=== PATIENT | male | born 1980 | race Caucasian/White ===

== ENCOUNTER → 2019-12-17 | Outpatient (CLI) | payer OTHER ==
--- NOTE | 2019-12-17 09:35 | RAD ---
MRI Cervical Spine Without Contrast History:Left arm radiculopathy Technique: Multiplanar, multi sequential noncontrast MR imaging was performed of the cervical spine. Comparison: None Findings: Cervical vertebral body stature and AP alignment are maintained. Intervertebral disc spaces are overall maintained, minimal disc desiccation greatest C5-6. There is no significant marrow edema. Cervical cord caliber is within normal limits without defined or expansile signal change. C2-C3: Spinal canal and neural foramina are adequate. C3-C4: Spinal canal and the neural foramina are adequate. C4-C5: Neural foramina and spinal canal are adequate. There is facet degenerative change bilaterally. C5-C6: There is mild facet degenerative change. Neural foramina and spinal canal are adequate. C6-C7: There is protrusion/small extrusion extending very slightly above the intervertebral disc space greatest centrally and in the far left lateral recess about 2 mm AP, indentation upon the ventral thecal sac greatest in the far left lateral recess. There is mild narrowing of the far lateral recess, also central canal minimally narrowed about 9 mm. Right neural foramen is adequate. There is probable [id number] narrowing of the proximal left neural foramen by protrusion/small extrusion. C7-T1: Neural foramina and spinal canal are adequate. Impression: 1. There is mild spinal stenosis and also mild narrowing of the far left lateral recess at C6-7 by protrusion/small extrusion extending slightly above the intervertebral disc space in the far lateral recess. There is also probable [id number] narrowing of the proximal left C6-7 neural foramen. Electronically signed by: Boston Tian MD (12/17/2019 9:32 AM) [id number]
== END | disposition home or self-care (01) ==
LOC: MRI 08:42
PROVIDERS: ATTEND Physician Assistant
DX: M47.22 Other spondylosis with radiculopathy, cervical region (principal); M48.02 Spinal stenosis, cervical region
CPT/HCPCS: 72141

== ENCOUNTER → 2020-01-02 | Outpatient (CLI) | payer OTHER ==
[~2020-01-02] MED LIST: HYDR-2761 PO; LISI2.5T PO; METF10007 PO
== END | disposition home or self-care (01) ==
LOC: LAB 12:52
PROVIDERS: ATTEND Surgery
DX: Z01.818 Encounter for other preprocedural examination (principal); Z11.59 Encounter for screening for other viral diseases
CPT/HCPCS: C9803; U0003; 36415

== ENCOUNTER → 2020-01-05 | Outpatient (CLI) | payer OTHER ==
--- NOTE | 2020-01-05 15:18 | KCIC ---
MR of the left shoulder HISTORY: Left shoulder pain. TECHNIQUE: Routine multiplanar sequences are obtained. FINDINGS: The acromioclavicular joint is mildly degenerative. Mild undersurface osteophytes with mass effect upon the supraspinatus. Mild thickening and signal within the rotator cuff compatible with tendinosis. No measurable fluid gap or rupture of the rotator cuff. Muscle bulk intact. No significant subdeltoid bursal effusion. No significant glenohumeral joint effusion. Tear of the superior, posterior and inferior labrum. Tiny posteroinferior para labral cysts. Small subchondral cysts at the posterior glenoid, likely degenerative. There may be mild overlying chondromalacia. The biceps tendon is intact. No acute fracture. No aggressive bone destruction. No acute soft tissue abnormality. IMPRESSION: 1. Tear of the superior, posterior and inferior labrum. 2. Rotator cuff tendinosis without measurable fluid defect or rupture. 3. Small subchondral cysts at the posteroinferior glenoid, likely due to degenerative disease. Electronically signed by: Jimmy Loza MD (01/05/2020 3:15 PM) [id number]
== END | disposition home or self-care (01) ==
LOC: KCIC MRI 14:15
PROVIDERS: ATTEND Physician Assistant
DX: M94.212 Chondromalacia, left shoulder (principal); M25.712 Osteophyte, left shoulder; M75.102 Unspecified rotator cuff tear or rupture of left shoulder, not specified as traumatic; M77.8 Other enthesopathies, not elsewhere classified
CPT/HCPCS: 73221

== ENCOUNTER → 2020-01-08 | Day surgery (SDC) | payer OTHER ==
[~2020-01-08] MED LIST changes: -HYDR-2761 PO; +LIDOCAINE 1%/EPI 1:100,000 20 ML VIAL. INJ ONE; +LIDOCAINE 1%/EPI 1:100,000 20 ML VIAL. ONE; -LISI2.5T PO; -METF10007 PO
--- NOTE | 2020-01-08 09:43 | PDOC4 ---
Operative Note Operative Note Date: 01/08/2020 at 9:41 AM Preoperative diagnosis: Right lower back mass Postoperative diagnosis: Same Procedure: Excision of right lower back mass Surgeon: Harris Specimen: Right lower back mass 4 cm x 4 cm Dictation: Patient is a 39-year-old male who several years ago had a small lipoma removed from his right lower back most recently that area has been getting larger occasionally tender. Procedure of excision of mass was explained to the patient detail was benefits were also discussed occluding bleeding infection alternatives to this procedure also discussed with the patient who seemed to understand and gave both verbal and written consent to have the procedure performed. Patient was taken to the minors room placed in the prone positioning his lower back on the right side was prepped and draped usual sterile fashion using ChloraPrep. An area over the mass was injected with 1% lidocaine with epinephrine incision was made with a 15 blade scalpel is carried down through the subcutaneous tissue. The mass was sharply excised with Metzenbaum scissors and sent for pathology the mass measured 4 x 4 cm appear to be lipoma wound was then closed in 2 layers the deep layer running 3-0 Vicryl and the skin was reapproximated for subcuticular Monocryl Mastisol Steri-Strips and island dressing were applied. Patient tolerated procedure well was discharged home in stable condition all sponge instrument needle counts listed as correct estimated blood loss 10 mL RICH TEE MD Jan 08, 2020 09:43
--- NOTE | 2020-01-08 09:45 | DISCH ---
DISCHARGE INSTRUCTIONS Condition on Discharge Condition on Discharge: Stable Activity After Discharge Activity Instructions for Disc: No restrictions Other activity instructions: May shower in 24 hours Diet after Discharge Diet after Discharge: Regular Wound Incision Care Other wound/incision instructi: May shower in 24 hours Contacting the after DC Call your doctor for: If your condition worsens Follow-Up Follow up with: Dr. Tee in 2 weeks RICH TEE MD Jan 08, 2020 09:45
--- NOTE | 2020-01-09 18:06 | PATHOLOGY ---
[facility] Accession Number: [id number] . 01 Material submitted: . back - LOWER RIGHT BACK MASS. Modifiers: lower, right . 02 Diagnosis: Fibroadipose tissue, lower right back mass: - Lipoma. (JPM/db; 01/09/2020) LBQ 01/09/2020 1533 Local . 02 Electronically signed: . Epifanio Hernandez MD, Pathologist NPI- [id number] . 01 Gross description: . The specimen is received in formalin, labeled "Blacketer, Nino, lower right back mass" and consists of an irregular segment of yellow-red soft tissue measuring 6.8 x 3.9 x 2.0 cm. Sectioning reveals focally fibrotic cut surfaces and no gross lesions. Cafeteria Cashier tissue is submitted in A1-A2. (SDY; 01/08/2020) SYU/SYU 01/09/2020 1532 Local . 02 Pathologist provided ICD-10: D17.1 . 02 CPT . 775454 Specimen Comment: A courtesy copy of this report has been sent to [phone], [phone] Specimen Comment: [id number] Specimen Comment: Report sent to / DR CRAIN Performed at: 01 [facility] [address], [place], [place] [id number] MD Surya Cali MD Phone: [phone] Performed at: 02 [facility] [address], [place] [id number] MD Epifanio Hernandez MD Phone: [phone]
== END ==
LOC: SURG 08:36
PROVIDERS: ATTEND Surgery
DX: D17.1 Benign lipomatous neoplasm of skin and subcutaneous tissue of trunk (principal); I10 Essential (primary) hypertension; E11.9 Type 2 diabetes mellitus without complications; J44.9 Chronic obstructive pulmonary disease, unspecified; Z87.891 Personal history of nicotine dependence; Z79.84 Long term (current) use of oral hypoglycemic drugs
CPT/HCPCS: 21931; J3490

== ENCOUNTER → 2020-01-13 | Outpatient (CLI) | payer OTHER ==
[~2020-01-13] MED LIST changes: +HYDR-2761 PO; -LIDOCAINE 1%/EPI 1:100,000 20 ML VIAL. INJ ONE; -LIDOCAINE 1%/EPI 1:100,000 20 ML VIAL. ONE; +LISI2.5T PO; +METF10007 PO
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
== END | disposition home or self-care (01) ==
LOC: PNCL 12:57
PROVIDERS: ATTEND Anesthesiology
DX: M54.12 Radiculopathy, cervical region (principal); M79.642 Pain in left hand; I10 Essential (primary) hypertension; E11.9 Type 2 diabetes mellitus without complications; M19.90 Unspecified osteoarthritis, unspecified site; E66.9 Obesity, unspecified; Z82.49 Family history of ischemic heart disease and other diseases of the circulatory system; Z83.3 Family history of diabetes mellitus
CPT/HCPCS: G0463

== ENCOUNTER → 2020-01-20 | Outpatient (CLI) | payer OTHER ==
[~2020-01-20] MED LIST changes: +IOHEXOL 180 MG/ML 10 ML VIAL. ONE; +methylPREDNISolone ACETATE 40 MG/ML VIAL. ONE; +methylPREDNISolone ACETATE 80 MG/ML VIAL. ONE
--- NOTE | 2020-01-20 12:22 | PAIN ---
DATE OF SERVICE: 01/20/2020 PROGRESS NOTE FOR PAIN CLINIC DIAGNOSES: Cervical radiculopathy with cervical degenerative disk disease and cervical spinal stenosis. HISTORY OF PRESENT ILLNESS: The patient is a 39-year-old male who returns for followup status post initial evaluation and preauthorization for a cervical epidural steroid injection. The patient has obtained that now and would like to proceed. The patient reports still significant pain in the base of neck and left greater than right upper extremity. The patient reports no new motor or sensory deficits, but he is using a riding mower yesterday, reports he was going on it for a few minutes and the pain began to get much worse in both of his hands with some numbness and tingling. The patient reports pain in the base of the neck, shooting into the upper extremities, more on the left than the right, but present bilaterally as it was previously. The patient reports it is an 8 on a scale of 10 at its worst in the past week, 7 on average, 5 at its least and is a 7 today. The patient reports it is aching, shooting, tingling, becoming more constant. The patient reports no new motor or sensory deficits or other complaints. PHYSICAL EXAMINATION: VITAL SIGNS: The patient's blood pressure is 136/83, pulse is 78, respirations 18, temperature 98.7 degrees Fahrenheit, height is 5 feet 7 inches, weight is 228 pounds. GENERAL: The patient is awake, alert, oriented, appropriate, very pleasant demeanor. HEENT: Shows normocephalic, atraumatic. Extraocular movements are intact and symmetrical. Oral cavity shows mucous membranes moist and pink. Dentition is intact. NECK: Shows anterior throat supple without palpable lymphadenopathy noted. Swallow reflex symmetrical. CHEST: Shows normal on inspection. Breath sounds are clear bilaterally. HEART: Shows S1, S2 clear. No murmurs auscultated. ABDOMEN: Soft, nontender, nondistended. No palpable organomegaly is noted. No rebound or guarding demonstrated. BACK: Shows spine grossly in the midline. Normal appearing thoracic kyphosis, some minor increase in flattening of lumbar lordotic curvature. Cervical paraspinous muscle shows symmetrical on inspection, on palpation shows some moderate tenderness diffusely bilaterally, but only diffusely without significant radiation. The patient has good rotational motion of cervical spine, both laterally as well as extension and flexion without difficulty. EXTREMITIES: The patient's upper extremities show deep tendon reflexes 2+ in the biceps and triceps tendons. Motor exam is approximately 4 on a scale of 5 on the left and 5/5 on the right with farm management supervisor strength, bicep and tricep flexion. Peripheral pulses are 2+ radial. No peripheral edema is noted. Options were discussed with the patient. The patient's old chart was reviewed as his current medication regimen updated. Current review of systems updated today as well. We will proceed with a cervical epidural steroid injection today with fluoroscopic guidance. Risks were again discussed including, but not limited to bleeding, infection, possibility of epidural hematoma, subsequent neurological compromise, dural puncture, headaches, spinal cord and/or nerve damage, side effects of steroid medication and poor results regarding pain control. The patient understands and wished to proceed. The patient will return to clinic in approximately 2 weeks for followup. He was counseled on return appointment, activity level and side effects to be aware of. DIAGNOSES: Cervical radiculopathy with cervical degenerative disk disease and cervical spinal stenosis. PROCEDURE: Cervical epidural steroid injection, translaminar approach C6-C7 level using C-arm fluoroscopic guidance under sterile prep and drape using local anesthetic. MEDICATION INJECTED: A total of 120 mg Depo-Medrol plus 5 mL of preservative-free normal saline and 2 mL of contrast. CONDITION AT DISCHARGE: Stable. The patient tolerated procedure well, had no complications. SARAH ARGUETA MD DR: ARIC/raisa JOB#: [id number] / [id number]
== END ==
LOC: PNCL 10:58
PROVIDERS: ATTEND Anesthesiology
DX: M54.12 Radiculopathy, cervical region (principal); M48.02 Spinal stenosis, cervical region
CPT/HCPCS: 62321; J1030; J1040; Q9965

== ENCOUNTER → 2020-02-23 | Outpatient (CLI) | payer OTHER ==
[~2020-02-23] MED LIST changes: +BUPIVACAINE MPF 0.5% 10 ML VIAL for KCIC. IM ONE; -IOHEXOL 180 MG/ML 10 ML VIAL. ONE; +IOHEXOL 300 MG/ML 50 ML VIAL. IM ONE; +LIDOCAINE 1% Multi-Dose 20 ML VIAL. ID ONE; +methylPREDNISolone ACETATE 40 MG/ML VIAL. IM ONE; -methylPREDNISolone ACETATE 40 MG/ML VIAL. ONE; -methylPREDNISolone ACETATE 80 MG/ML VIAL. ONE
--- NOTE | 2020-02-23 16:18 | KCIC ---
EXAM: Left biceps tendon sheath injection WITH Fluoroscopic guidance DATE: 02/23/2020 12:30 PM CLINICAL HISTORY: LEFT BICEP TENDINITIS OF SHOULDER-4 month history of pain COMPARISON: None pertinent TECHNIQUE: The patient was informed of the indications and alternatives for this procedure as well as risks and benefits. No immediate contraindication identified. The patient provided informed, written consent. Laterality was confirmed by the entire team following a time out. Following initial left bicipital groove localization, a suitable area was sterilely prepped and draped. Local anesthesia was administered with 1% xylocaine. With intermittent fluoroscopic observation, a 22-gauge needle was advanced into the left biceps tendon sheath with confirmation of biceps tendon sheath position with infusion of less than 1 cc iodinated contrast. Subsequent infusion 2 mL of Depo-Medrol 40 mg/mL and 2 mL bupivacaine 0.5 percent. Hemostasis with local pressure. Local clinical exam negative for immediate complication. Patient informed re local potential signs or symptoms that may indicate need to return to ER/Ordering physician for further evaluation. Patient informed re precautionary measures after intra-synovial injection of anesthetic. Patient informed re potential for short term increase local symptomatology due to steroid flare. Patient expressed understanding. Performing Physicians: Dr. Mehreen Crane Blood Loss: 0 cc Pre-procedural Pain Scale: 4-5 Post-procedural Pain Scale: 0 Total Fluoroscopy time: 10 seconds Total spot images taken: 0 Total fluoroscopic screen save images taken: 1 IMPRESSION: Successful injection left biceps tendon sheath with steroid and anesthetic per clinical request. Electronically signed by: Scar Crane MD (02/23/2020 4:15 PM) JUS
== END | disposition home or self-care (01) ==
LOC: KCIC 12:30
PROVIDERS: ATTEND Orthopaedic Surgery Sports Medicine
DX: M75.22 Bicipital tendinitis, left shoulder (principal); Z72.89 Other problems related to lifestyle; Z87.891 Personal history of nicotine dependence; Z79.899 Other long term (current) drug therapy
CPT/HCPCS: 20610; 77002; J1030; J3490; Q9967

== ENCOUNTER → 2020-03-08 | Outpatient (CLI) | payer OTHER ==
[~2020-03-08] MED LIST changes: -BUPIVACAINE MPF 0.5% 10 ML VIAL for KCIC. IM ONE; -IOHEXOL 300 MG/ML 50 ML VIAL. IM ONE; -LIDOCAINE 1% Multi-Dose 20 ML VIAL. ID ONE; -methylPREDNISolone ACETATE 40 MG/ML VIAL. IM ONE
--- NOTE | 2020-03-08 08:47 | PDOC ---
Progress Note - Pain Clinic Date of Service: DOS: DATE: 03/08/20 TIME: 08:41 Diagnosis: Dx: Cervical radiculopathy with cervical degenerative disease and cervical spinal stenosis History or Present Illness: HPI: 39-year-old male returns follow-up status post cervical epidural injection x1. Last seen January 20, 2020 patient reports about 90% improvement after the injection. Patient reports he is doing much better for about a month after the injection and the pain began to return very gradually and then the base the neck and the left shoulder rating to the left arm and hand with some numbness and tingling also some weakness with lifting items such as a milk carton with the left arm. Patient ports pain is 8 on scale 10 is worse over the past week 6 on average 3 this least is a 3 today. Patient which is sharp and shooting radiating to the left upper extremity posterior deltoid posterior tricep bicep a nd into the forearm some numbness and tingling in the forearm and the hand especially the first and second fingers. Patient ports no loss of motor function completely but significant weakness with the left hand and with lifting items or repetitive motions. Patient reports initially he was doing much better with working activities sleeping better with greater ease and comfort very pleased with activity level and abilities and is working much more at home as well as his job with greater ease and comfort. Reports pain is returning now in radicular fashion again in the left upper extremity as noted. Patient continues to do stretching strength exercises also is having some issues evaluate with his left shoulder from his orthopedist which is improving as well. Physical Exam: VS: Blood pressure 135/87 pulse 88 respiration 16 temperature 97.8 F height is 5 foot 7 inches weight is 221 pounds PE: PHYSICAL EXAMINATION: GENERAL: The patient is awake, alert, oriented, appropriate, very pleasant demeanor HEENT: Shows normocephalic, atraumatic. Extraocular movements are intact and symmetrical. Oral cavity: Mucous membranes moist and pink. Dentition is intact. NECK: Shows anterior throat supple without palpable lymphadenopathy noted. Swallow reflex symmetrical. CHEST: Shows normal on inspection. Breath sounds are clear bilaterally. HEART: Shows S1, S2 clear. No murmurs auscultated. ABDOMEN: Soft, nontender, nondistended. No palpable organomegaly is noted. No rebound or guarding demonstrated. BACK: Shows spine grossly in the midline. Normal-appearing cervical lordotic curvature, cervical spine shows good rotation motion with some moderate tenderness with far left lateral Tatian past 45 degrees once full extension was performed fully but for significant pain the base the neck and left shoulder better with forward flexion and right lateral rotation without significant increase in pain. There is slightly increased thoracic kyphosis, without specific trigger points, without radiation of pain. No tenderness over the spinous processes, but with moderate tenderness in the trapezius in the inferior aspect on the left side only without specific trigger points radiation or asymmetry. EXTREMITIES: upper extremities show deep tendon reflexes 2+ in the patellar and biceps and triceps tendons. Motor exam is 5 on a scale of 5 with right batch weigher strength, biceps and triceps flexion and 4/5 on the left. Peripheral pulses are 2+ radial. No peripheral edema is noted bilaterally. upper extremities are warm and dry to touch, equal in color and appearance. SKIN: Shows warm and dry, good turgor. No edema. No sores, rashes or bruising throughout. Procedure: Procedure: Options were discussed with the patient. Patient chart was reviewed his current medication regimen updated current review of systems updated today as well. We will preauthorize patient for a second cervical epidural steroid injection. Patient had significant improvement 90% in the left upper extremity with the pain returning now and some weakness in the left hand with batch weigher strength and clinically a radicular pattern in the C6-7 dermatomal distribution on the left. Patient continue with stretching and strengthening exercises. Patient also try a Medrol Dosepak patient was given instructions well side effects be aware with the medication and will follow-up in approximately 1 week we will plan on second cervical epidural steroid injection at the C6-7 level translaminar approach. Medication Injected: Med Injected: None Condition at Discharge: Condition at Discharge: Condition at discharge is stable. SARAH ARGUETA MD Mar 08, 2020 08:47
== END | disposition home or self-care (01) ==
LOC: PNCL 08:23
PROVIDERS: ATTEND Anesthesiology
DX: M50.123 Cervical disc disorder at C6-C7 level with radiculopathy (principal); M48.02 Spinal stenosis, cervical region; I10 Essential (primary) hypertension; E11.9 Type 2 diabetes mellitus without complications; Z87.891 Personal history of nicotine dependence; Z79.899 Other long term (current) drug therapy
CPT/HCPCS: G0463

== ENCOUNTER → 2020-03-22 | Outpatient (CLI) | payer OTHER ==
[~2020-03-22] MED LIST changes: +IOHEXOL 180 MG/ML 10 ML VIAL. ONE; +methylPREDNISolone ACETATE 40 MG/ML VIAL. ONE; +methylPREDNISolone ACETATE 80 MG/ML VIAL. ONE
--- NOTE | 2020-03-22 09:17 | PDOC ---
Progress Note - Pain Clinic Date of Service: DOS: DATE: 03/22/20 TIME: 09:13 Diagnosis: Dx: Cervical radiculopathy with cervical degenerative disease and cervical spinal stenosis History or Present Illness: HPI: 39-year-old male returns follow-up status post cervical epidural injection x1. Patient reports about 90% improvement for the first 3 weeks pain returning down the base the neck and left shoulder patient ports his hands are doing much better though I have remained in very good condition he is no longer experiencing tingling in the hands numbness at night that is completely gone patient reports the main complaint is pain in the base the neck and left shoulder and upper extremity patient ports an 8 on scale 10 is worse over the past week 7 on average 3 at its worst least and is a 3 today. Patient ported sharp and shooting in quality occasionally dull aching in the neck. Patient reports no new motor or sensory deficits or other complaints. Physical Exam: VS: Blood pressure is 137/87 pulse 77 respiration 16 temperature 90.1 F weight is 223 pounds PE: PHYSICAL EXAMINATION: GENERAL: The patient is awake, alert, oriented, appropriate, very pleasant demeanor HEENT: Shows normocephalic, atraumatic. Extraocular movements are intact and symmetrical. Oral cavity: Mucous membranes moist and pink. NECK: Shows anterior throat supple without palpable lymphadenopathy noted. Swallow reflex symmetrical. CHEST: Shows normal on inspection. Breath sounds are clear bilaterally. HEART: Shows S1, S2 clear. No murmurs auscultated. ABDOMEN: Soft, nontender, nondistended. No palpable organomegaly is noted. No rebound or guarding demonstrated. BACK: Shows spine grossly in the midline. Normal-appearing cervical lordotic curvature, neck shows full rotation motion both laterally as well as extension flexion without significant increase in pain.. There is slightly increased thoracic kyphosis, some minor flattening of the lumbar lordotic curvature. Lumbar paraspinous muscles show symmetrical on inspection, on palpation shows some moderate tenderness diffusely throughout the upper, middle and lower distribution of the paraspinous muscles,without radiation of pain. The patient has good rotational motion of the lumbar spine, both laterally as well as extension and flexion without significant difficulty. No tenderness over the spinous processes, sacrum or sacroiliac regions. EXTREMITIES: upper extremities show deep tendon reflexes 2+ in the biceps and triceps tendons. Motor exam is 5 on a scale of 5 with right station worker, biceps and triceps flexion and 5/5 on the left. Peripheral pulses are 2+ radial. [] peripheral edema is noted bilaterally. upper extremities are warm and dry to touch, equal in color and appearance. SKIN: Shows warm and dry, good turgor. No edema. No sores, rashes or bruising throughout. Procedure: Procedure: Options were discussed with the patient. Patient will chart reviewed his his current medication regimen updated current review of systems updated today as well. We will proceed with a second in the series cervical epidural steroid injection today with fluoroscopic guidance risks are again discussed including but not limited to bleeding infection possibility of epidural hematoma subse quent neurological compromise dural puncture headache spinal cord and or nerve damage side effects of steroid medication and poor results regarding pain control. Patient understands wished to proceed. Patient return to clinic in approximate 2 weeks for follow-up. Was counseled as to return appointment activity level and side effects be aware. Medication Injected: Med Injected: Procedure cervical epidural steroid injection at the C6-7 level, using local anesthetic under sterile prep and drape using C-arm fluoroscopic guidance under local anesthesia medications injected ; 120 mg Depo-Medrol + 5 mL normal saline and 2 mL contrast; condition at discharge is stable patient tolerated procedure well. and had no complications Condition at Discharge: Condition at Discharge: Condition at discharge is stable. Patient tolerated procedure well had no complications. SARAH ARGUETA MD Mar 22, 2020 09:17
== END | disposition home or self-care (01) ==
LOC: PNCL 08:10
PROVIDERS: ATTEND Anesthesiology
DX: M50.123 Cervical disc disorder at C6-C7 level with radiculopathy (principal); M48.02 Spinal stenosis, cervical region; Z79.899 Other long term (current) drug therapy
CPT/HCPCS: 62321; J1030; J1040; Q9965

== ENCOUNTER → 2020-04-02 | Outpatient (CLI) | payer OTHER ==
[~2020-04-02] MED LIST changes: -IOHEXOL 180 MG/ML 10 ML VIAL. ONE; -methylPREDNISolone ACETATE 40 MG/ML VIAL. ONE; -methylPREDNISolone ACETATE 80 MG/ML VIAL. ONE
--- NOTE | 2020-04-02 11:04 | RAD ---
STUDY: MRI of the right knee without contrast INDICATION: Medial knee pain. COMPARISON: Right knee radiographs 03/04/2020 TECHNIQUE: Multiplanar MR imaging of the right knee performed without the use of intravenous or intra-articular contrast. FINDINGS: Nondiagnostic coronal T2 sequence due to artifact. Menisci: Free edge tearing of the medial meniscus centered at the posterior body/horn junction. Faint obliquely oriented T2 signal within the medial meniscus posterior horn such as on images 8 and 9 series 8 could be myxoid degeneration or a nearly occult tear. Cruciate ligaments: Intact. Collateral ligaments: Intact. Tendons: Intact. Cartilage: Patellofemoral: Superficial chondrosis seen to involve portion of the patellar median ridge and medial facet, image 9 series 7. No high-grade trochlear chondrosis. Lateral compartment: Intact. Medial compartment: Weightbearing chondral loss at the inner margin of the medial femoral condyle with irregularity of the subchondral bone plate and subchondral cystic change/sclerosis. The region of involvement measures approximately 1 cm transverse by 1.1 cm AP. The signal of the thinned cartilage at this location suggests some intermixed fibrotic tissue. Bones: No acute fracture. The TT-TG distance is within normal limits. Miscellaneous: No large joint effusion or Gaines's cyst. IMPRESSION: 1. Localized chondral abnormality at the inner margin of the weightbearing medial femoral condyle measuring 1 x 1.1 cm. The cartilage at this location is thinned and with intermixed signal suggestive of fibrotic tissue. Given location this is favored the sequela of a chronic osteochondral lesion that has partially healed. 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 2. Free edge tearing of the medial meniscus posterior body/horn junction subjacent to the chondral abnormality. There is either a nearly occult obliquely oriented tear extending into the posterior horn from the free edge tear (image 8 series 8) versus myxoid degeneration. Electronically signed by: EVIE BARBOSA MD (04/02/2020 11:02 AM) [id number]
== END | disposition home or self-care (01) ==
LOC: MRI 10:55
PROVIDERS: ATTEND Physician Assistant
DX: S83.241D Other tear of medial meniscus, current injury, right knee, subsequent encounter (principal); X58.XXXD Exposure to other specified factors, subsequent encounter
CPT/HCPCS: 73721

== ENCOUNTER → 2020-06-01 | Outpatient (CLI) | payer OTHER ==
[~2020-06-01] MED LIST changes: +CELE200C PO; +OXYC1TAB19 PO
== END ==
LOC: LAB 12:51
PROVIDERS: ATTEND Orthopaedic Surgery
DX: Z01.812 Encounter for preprocedural laboratory examination (principal); Z20.828 Contact with and (suspected) exposure to other viral communicable diseases
CPT/HCPCS: U0003

== ENCOUNTER 2020-06-04 06:02 | Day surgery (SDC) | payer OTHER ==
[~2020-06-04] VITALS: Ht 172.7 cm; Wt 100.7 kg
[~2020-06-04 06:02] MED LIST changes: +BUPIVACAINE-EPI 0.5%-1:200000 MPF 30 ML VIAL. INJ ONE; -CELE200C PO; -OXYC1TAB19 PO
[2020-06-04] MEDS ORDERED: CELE200C PO (06:25)
[2020-06-04 06:48] LABS: BASO # 0.1 x10^3/uL (0.0-0.2); BASO % 1 % (0-3); EOS # 0.1 x10^3/uL (0.0-0.7); EOS % 1 % (0-3); HEMATOCRIT 51.6 % (39.0-53.0); LYMPH # 2.4 x10^3/uL (1.0-4.8); LYMPH % 28 % (24-48); MEAN CORPUSCULAR HEMOGLOBIN 32 pg (25-35); MEAN CORPUSCULAR HGB CONC 35 g/dL (31-37); MEAN CORPUSCULAR VOLUME 91 fL (79-100); MONO # 0.7 x10^3/uL (0.0-1.1); MONO % 8 % (0-9); NEUT # 5.5 x10^3/uL (1.8-7.7); NEUT % 62 % (31-73); PLATELET COUNT 170 x10^3/uL (140-400); RED BLOOD COUNT 5.64 x10^6/uL (4.30-5.70); WHITE BLOOD COUNT 8.8 x10^3/uL (4.0-11.0)
[2020-06-04] MEDS ORDERED: MORPHINE SULFATE 2 MG/ML VIAL. IV PRN (07:00)
[2020-06-04] MEDS ORDERED: ONDANSETRON PF 4 MG/2 ML VIAL. IV PRN (07:00)
[2020-06-04] MEDS ORDERED: PROCHLORPERAZINE 10 MG/2 ML VIAL. IV PRN (07:00)
[2020-06-04] MEDS ORDERED: HYDROmorphone 2 MG/ML VIAL IV PRN (07:00)
[2020-06-04] MEDS ORDERED: IV RINGERS,LACTATED 1000ML 1,000 ML IV SCH (07:00)
[2020-06-04] MEDS ORDERED: fentaNYL PF VIAL 100 MCG/2 ML VIAL IV PRN ×2 (07:00)
[2020-06-04 07:04] LABS: CALCIUM 9.1 mg/dL (8.5-10.1); CREATININE 0.8 mg/dL (0.7-1.3); GFR 108.2; POTASSIUM 3.9 mmol/L (3.5-5.1)
[2020-06-04] MEDS ORDERED: fentaNYL PF VIAL 100 MCG/2 ML VIAL ONE ×2 (07:09→08:37)
[2020-06-04] MEDS: INSULIN LISPRO 100 UNIT/ML 3ML VIAL for OP,RR ONLY. SQ PRN ×2 (07:17→09:11)
[2020-06-04] MEDS ORDERED: SUCCINYLCHOLINE 200 MG/10 ML VIAL. ONE (07:33)
[2020-06-04] MEDS ORDERED: PROPOFOL 10 MG/ML (20ML) VIAL. IV ONE ×2 (07:48→08:05)
[2020-06-04] MEDS ORDERED: LIDOCAINE 2% PF 5 ML VIAL. ONE (07:48)
[2020-06-04] MEDS ORDERED: SEVOFLURANE > 120 MINUTES. IH ONE (07:48)
[2020-06-04] MEDS ORDERED: DEXAMETHASONE SOD PHOS 4 MG/ML VIAL ONE (07:48)
[2020-06-04] MEDS ORDERED: ONDANSETRON PF 4 MG/2 ML VIAL. ONE (07:49)
[2020-06-04] MEDS ORDERED: INSULIN LISPRO 100 UNIT/ML 3ML VIAL for OP,RR ONLY. SQ ONE ×2 (09:15)
[2020-06-04 09:30] VITALS: BP 165/82
[2020-06-04] MEDS ORDERED: OXYC1TAB19 PO (09:56)
--- NOTE | 2020-06-04 09:59 | DISCH ---
DISCHARGE INSTRUCTIONS Condition on Discharge Condition on Discharge: Stable Activity After Discharge Activity Instructions for Disc: Other, see below (Gentle knee motion advance as tolerated) Weight Bearing Status after Di: Non weight bearing Diet after Discharge Diet after Discharge: Diabetic No Calorie Level Wound Incision Care Wound/Incision Care: Ice to area for comfort, Change dressing (May remove dressing in 3 days may then shower) Contacting the after DC Call your doctor for: Concerns you may have Follow-Up Follow up with: Dr. Banks 10 days NASIM BANKS MD Jun 04, 2020 09:59
[2020-06-04] MEDS ORDERED: oxyCODONE/APAP 7.5/325 1 TAB TABLET PO PRN (10:00)
[2020-06-04] MEDS ORDERED: oxyCODONE/APAP 7.5/325 1 TAB TABLET PO ONE (10:00)
--- NOTE | 2020-06-04 10:18 | PDOC4 ---
Operative Note Operative Note Date of surgery: 06/04/2020 Preoperative diagnosis: Right knee medial meniscus tear and osteochondral defect medial femoral condyle Postoperative diagnosis same Operative procedure: Right knee arthroscopy partial medial meniscectomy and osteochondral allograft medial femoral condyle; CPT 30061, [id number] Surgeon: Jocelyn Anesthesia: General Estimated blood loss: 5 cc Complications: None Operative indications: Please see my orthopedic clinic note for detailed operative indications and note that patient does have a documented medial meniscus tear on MRI along with osteochondral defect of the lateral weightbearing surface of medial femoral condyle and I had gone over treatment of the meniscus along with structure and function with meniscus removal of the torn portion back to stable tissue as well as evaluation and likely grafting of the osteochondral defect, particularly the limitations postoperatively associated with grafting with limited weightbearing and slow return to activity under physical therapy. Possibility of continued pain infection nerve or blood vessel damage medical or other anesthetic complications among others he wishes to proceed with surgical evaluation and treatment. Operative text: Patient was identified procedure verified patient placed in the supine position on the operating table. After adequate amounts of general anesthesia were administered the right lower extremity was prepped and draped in standard sterile fashion with a thigh tourniquet. After timeout was performed patient procedure identified and verified the right lower extremity was exsang uinated by Esmarch bandage tourniquet inflated to 300 mmHg a lateral portal established medial portal established using spinal needle localization and the knee joint was systematically examined. Patellofemoral tracking was noted to be excellent, and a small cartilage fragments were evacuated with the arthroscopic shaver medial meniscus noted to have a complex tear in the posterior horn which was trimmed back to stable tissue with the arthroscopic punch and shaver and radiused appropriately to avoid any additional stress risers. ACL and lateral meniscus were probed and found to be intact. The osteochondral defect in the weightbearing portion lateral aspect of the medial femoral condyle was debrided sharply back to stable cartilage edges and underlying bone with a ring curette the medial portal incision was then enlarged and the base of the defect was thoroughly dried. The allograft bone was placed in the base defect with a small amount of Tisseel to secure it. De kenyetta cartilage graft was then placed and s ealed with Tisseel ensuring that the graft was just slightly recessed. Knee was taken through range of motion to ensure stability of the allograft. Closure accomplished with #1 Vicryl suture in the fascia subcutaneous Vicryl suture buried and skin closure with nylon sutures of incision and lateral portal. Sterile compressive dressings were placed toes were noted be warm pink following deflation of the tourniquet patient was returned to recovery room in stable condition having tolerated procedure well. Postoperatively he was given instructions for strict nonweightbearing with gentle range of motion and physical therapy to start after my follow-up visit and check NASIM GARCIA MD Jun 04, 2020 10:18
[2020-06-05 03:11] LABS: HEMOGLOBIN A1C 7.4 % (4.8-5.6)
== END 2020-06-04 10:35 | disposition home or self-care (01) ==
LOC: SURG 06:02
PROVIDERS: ATTEND Orthopaedic Surgery
DX: S83.231A Complex tear of medial meniscus, current injury, right knee, initial encounter (principal); M21.961 Unspecified acquired deformity of right lower leg; I10 Essential (primary) hypertension; E78.00 Pure hypercholesterolemia, unspecified; J44.9 Chronic obstructive pulmonary disease, unspecified; E66.9 Obesity, unspecified; E11.9 Type 2 diabetes mellitus without complications; M19.90 Unspecified osteoarthritis, unspecified site; Z79.82 Long term (current) use of aspirin; Z79.84 Long term (current) use of oral hypoglycemic drugs; Z79.899 Other long term (current) drug therapy; Z98.890 Other specified postprocedural states; Z87.891 Personal history of nicotine dependence; X58.XXXA Exposure to other specified factors, initial encounter; Y93.89 Activity, other specified; Y92.89 Other specified places as the place of occurrence of the external cause; Y99.8 Other external cause status
CPT/HCPCS: 27415; 29881; 36415; 80048; 82962; 83036; 85025; C1713; J0330; J0690; J1100; J1815; J2405; J2704; J3010

== ENCOUNTER → 2021-01-10 | Outpatient (CLI) | payer OTHER ==
[~2021-01-10] MED LIST changes: -BUPIVACAINE-EPI 0.5%-1:200000 MPF 30 ML VIAL. INJ ONE; +CELE200C PO; +CYCL10TA2 PO; +GLIM2TAB7 PO; +IOHEXOL 180 MG/ML 10 ML VIAL. ONE; +LISI10TA16 PO; +OXYC1TAB19 PO; +methylPREDNISolone ACETATE 40 MG/ML VIAL. ONE; +methylPREDNISolone ACETATE 80 MG/ML VIAL. ONE
--- NOTE | 2021-01-10 12:40 | PDOC ---
Progress Note - Pain Clinic Date of Service: DOS: DATE: 01/10/21 TIME: 12:36 Diagnosis: Dx: Cervical radiculopathy with cervical degenerative disc disease and cervical spinal stenosis History or Present Illness: HPI: 40-year-old male returns for follow-up last seen February 2020, patient did very well after cervical epidural steroid injection about 75% improvement for 8 months patient reports pain returned over the past month or 2 in the base the neck and shoulders upper extremities rating the bilateral arms and hands with t ingling and numbness left greater than right in the forearms and fingers patient reports is a 9 on scale 10 is worse over the past week 9 on average 6 its least is a 9 today. Patient describes the pain as sharp and shooting across the neck and shoulders upper back mid back also tingling and burning in the hands and fingers with a cramping pain in the shoulders as well can be constant severe worse with repetitive motions reaching over his head with his arms need weight lifting weightbearing activities reaching and stretching. Patient reports it disturbs her from sleep about 4-5 times at night as well. Patient reports the pain returned about 2 months ago without any specific injury or accident. Physical Exam: VS: Blood pressure is 137/82 pulse 91 respiration 16 temperature 98.0 F weight is 224 pounds PE: PHYSICAL EXAMINATION: GENERAL: The patient is awake, alert, oriented, appropriate, very pleasant in demeanor HEENT: Shows normocephalic, atraumatic. Extraocular movements are intact and symmetrical. Oral cavity: Mucous membranes moist and pink. Dentition is intact. NECK: Shows anterior throat supple without palpable lymphadenopathy noted. Swallow reflex symmetrical. CHEST: Shows normal on inspection. Breath sounds are clear bilaterally, no rales or rhonchi. HEART: Shows S1, S2 clear. No murmurs auscultated. ABDOMEN: Soft, nontender, nondistended, obese. BACK: Shows spine grossly in the midline. Normal-appearing cervical lordotic curvature. Cervical paraspinous muscles show symmetrical on inspection, on palpation some moderate tenderness diffusely in the inferior aspect of the paraspinous musculature bilaterally but only diffusely without radiation patient shows good rotational motion of the cervical spine both laterally greater than 45 degrees closer to 90 degrees well is full extension full forward flexion without significant difficulty or limitation. There is slightly increased thoracic kyphosis, some minor flattening of the lumbar lordotic curvature. EXTREMITIES: Upper extremities show deep tendon reflexes 2+ in the biceps and triceps tendons. Motor exam is 5 on a scale of 5 with right steamtable worker strength, biceps and tricep flexion and 4/5 on the left. Peripheral pulses are 2+ radial. No peripheral edema is noted bilaterally. Upper extremities are warm and dry to touch, equal in color and appearance. SKIN: Shows warm and dry, good turgor. No edema. No sores, rashes or bruising throughout. Procedure: Procedure: Options were discussed with the patient. Patient's old chart was reviewed his current medication regimen updated current review of systems updated today as well. We will proceed with a cervical epidural steroid ejections today with fluoroscopic guidance. Risks were discussed including but not limited to: Bleeding, infection, possibility of epidural hematoma and subsequent neur ological compromise, dural puncture, headaches, spinal cord and/or nerve damage, side effects of steroid medication, and poor results regarding pain control. Patient understands and wished to proceed. Patient will return to clinic in approximate 2 weeks for follow-up, was counseled as return appointment activity level and side effects to be aware of. Medication Injected: Med Injected: Procedure cervical epidural steroid injection at the C6-7 level, using local anesthetic under sterile prep and drape using C-arm fluoroscopic guidance under local anesthesia medications injected ;120 mg Depo-Medrol +5 mL normal saline and 2 mL contrast; condition at discharge is stable patient tolerated procedure well. and had no complications. Condition at Discharge: Condition at Discharge: Condition at discharge stable, patient tolerated procedure well and had no complications. SARAH ARGUETA MD Jan 10, 2021 12:40
--- NOTE | 2021-01-10 12:41 | PDOC4 ---
PROCEDURE Procedure Patient was consented for cervical epidural steroid injection. Risks were d iscussed including but not limited to: Bleeding, infection, possibility of epidural hematoma and subsequent neurological compromise, dural puncture, headaches, spinal cord and/or nerve damage, side effects of steroid medication, and poor results regarding pain control. Patient understands and wished to proceed. Procedure cervical epidural steroid injection at the C6-7 level, using local anesthetic under sterile prep and drape using C-arm fluoroscopic guidance under local anesthesia medications injected ;120 mg Depo-Medrol +5 mL normal saline and 2 mL contrast; condition at discharge is stable patient tolerated procedure well. and had no complications SARAH ARGUETA MD Jan 10, 2021 12:41
== END | disposition home or self-care (01) ==
LOC: PNCL 11:17
PROVIDERS: ATTEND Anesthesiology
DX: M50.123 Cervical disc disorder at C6-C7 level with radiculopathy (principal); M48.02 Spinal stenosis, cervical region; I10 Essential (primary) hypertension; J44.9 Chronic obstructive pulmonary disease, unspecified; E66.9 Obesity, unspecified; K21.9 Gastro-esophageal reflux disease without esophagitis; M19.90 Unspecified osteoarthritis, unspecified site; E11.9 Type 2 diabetes mellitus without complications; F17.210 Nicotine dependence, cigarettes, uncomplicated; E78.00 Pure hypercholesterolemia, unspecified; Z79.899 Other long term (current) drug therapy; Z79.84 Long term (current) use of oral hypoglycemic drugs; Z79.82 Long term (current) use of aspirin; Z98.890 Other specified postprocedural states; Z83.3 Family history of diabetes mellitus; Z82.49 Family history of ischemic heart disease and other diseases of the circulatory system
CPT/HCPCS: 62321; J1030; J1040; Q9965

== ENCOUNTER → 2021-03-29 | Outpatient (CLI) | payer OTHER ==
[~2021-03-29] MED LIST changes: -IOHEXOL 180 MG/ML 10 ML VIAL. ONE; -LISI2.5T PO; +LISI2.5T12 PO; -methylPREDNISolone ACETATE 40 MG/ML VIAL. ONE; -methylPREDNISolone ACETATE 80 MG/ML VIAL. ONE
--- NOTE | 2021-03-29 13:59 | PDOC ---
Progress Note - Pain Clinic Date of Service: DOS: DATE: 03/29/21 TIME: 13:56 Diagnosis: Dx: Cervical radiculopathy with cervical degenerative disease and cervical spinal stenosis History or Present Illness: HPI: 40-year-old male returns for follow-up status post cervical epidural steroid injection x1 last seen January 10, 2021 patient did very well about 80% improvement for the first 4 weeks pain been returning gradually in the neck and left upper extremity since that time gradually increasing not the result of any specific ne w injury or accident but is been increasing described as sharp and tingling burning stabbing radiating in the left arm posterior deltoid posterior triceps into the forearm both anterior and posterior with numbness and tingling in the right hand as well as the left hand more noticeable in the mornings patient reports has been wearing braces at night on the wrists try to help with this but has not been making much difference is worse with lifting repetitive motions reaching over his head with his left arm and reaching forward with weightbearing activities. Patient has been remodeling his house and is having some increased pain from the increase activity as well patient rates his pain as a 9 on scale 10 is worse over the past week 7 on average for its least is today. Physical Exam: VS: Blood pressure is 133/79 pulse 93 respirations 18 temperature 98.1 F height 5 feet 7 inches weight is 236 pounds PE: PHYSICAL EXAMINATION: GENERAL: The patient is awake, alert, oriented, appropriate, very pleasant in demeanor HEENT: Shows normocephalic, atraumatic. Extraocular movements are intact and symmetrical. Oral cavity: Mucous membranes moist and pink. Dentition is intact. NECK: Shows anterior throat supple without palpable lymphadenopathy noted. Swallow reflex symmetrical. CHEST: Shows normal on inspection. Breath sounds are clear bilaterally. HEART: Shows S1, S2 clear. No murmurs auscultated. ABDOMEN: Soft, nontender, nondistended. No palpable organomegaly is noted. BACK: Shows spine grossly in the midline. Normal-appearing cervical lordotic curvature. Cervical paraspinous muscles show symmetrical with inspection, on palpation some moderate tenderness diffusely more on the left than the right in the superior medial trapezius as well as in the inferior cervical paraspinous musculature but without atrophy hypertrophy or asymmetry and without trigger points. Patient shows full rotation motion cervical spine with lateral as well as full extension full forward flexion without significant limitation. There is slightly increased thoracic kyphosis, some minor flattening of the lumbar lordot ic curvature. EXTREMITIES: Upper extremities show deep tendon reflexes 2+ in the biceps and triceps tendons. Motor exam is 5 on a scale of 5 with right chairman of the board, biceps and triceps flexion and 4/5 on the left. Peripheral pulses are 2+ radial. No peripheral edema is noted bilaterally. Upper extremities are warm and dry to touch, equal in color and appearance. SKIN: Shows warm and dry, good turgor. No edema. No sores, rashes or bruising throughout. Procedure: Procedure: Options were discussed with the patient. Patient's old chart was reviewed his current medication regimen updated current view of systems updated today as well. We will preauthorize patient for cervical epidural steroid injection as he did very well with the first injection with the pain returning now in the left upper extremity in a C6-7 dermatomal distribution. Patient continue with stretching and strength exercises physical therapy as well as oral analgesics as currently. Once approved, will have patient return for cervical epidural steroid injection translaminar approach at the C6-7 level. Medication Injected: Med Injected: None Condition at Discharge: Condition at Discharge: Condition at discharge is stable. SARAH ARGUETA MD Mar 29, 2021 13:59
== END | disposition home or self-care (01) ==
LOC: PNCL 13:09
PROVIDERS: ATTEND Anesthesiology
DX: M50.10 Cervical disc disorder with radiculopathy, unspecified cervical region (principal); M48.02 Spinal stenosis, cervical region; I10 Essential (primary) hypertension; J44.9 Chronic obstructive pulmonary disease, unspecified; K21.9 Gastro-esophageal reflux disease without esophagitis; E66.9 Obesity, unspecified; E11.9 Type 2 diabetes mellitus without complications; M19.90 Unspecified osteoarthritis, unspecified site; Z79.899 Other long term (current) drug therapy; Z98.890 Other specified postprocedural states
CPT/HCPCS: 99212; G0463

== ENCOUNTER → 2021-04-12 | Outpatient (CLI) | payer OTHER ==
[~2021-04-12] MED LIST changes: +IOHEXOL 180 MG/ML 10 ML VIAL. ONE; +methylPREDNISolone ACETATE 80 MG/ML VIAL. ONE
--- NOTE | 2021-04-12 14:19 | PDOC ---
Progress Note - Pain Clinic Date of Service: DOS: DATE: 04/12/21 TIME: 14:15 Diagnosis: Dx: Cervical radiculopathy with cervical degenerative disc disease and cervical spinal stenosis History or Present Illness: HPI: 40-year-old male returns for follow-up status post cervical epidural steroid injection last on 01/10/2021. Patient reports about 80% improvement after the injection and the pain is returning now over the past 3 weeks or so in the base the neck and shoulders worse on the left and radiating to the upper extremities, now bilaterally into the hands with numbness and tingling, which was originally only on the left side but now bilaterally, described as sharp and shooting in the arms and hands tingling and burning in the hands as well as the arms and severe in the base the neck and shoulder specially on the left side patient reports is worse with activity reaching over his head with his hands repetitive motions weightlifting reaching forward with weightbearing as well as reaching over his head with weightbearing patient reports is 8 on scale 10 is worse over the past week 7 on average/and is a 4 today. Patient reports better with resting but generally wakes him sleep about every 2-1/2 hours. Patient reports no motor loss but significant fatigability especially of the left upper extremity compared to the right with activity. Physical Exam: VS: Blood pressure is 130/70 pulse 87 respirations 18 temperature is 90.1 F height 5 feet 7 inches weight 230 pounds PE: PHYSICAL EXAMINATION: GENERAL: The patient is awake, alert, oriented, appropriate, very pleasant in demeanor HEENT: Shows normocephalic, atraumatic. Extraocular movements are intact and symmetrical. Oral cavity: Mucous membranes moist and pink. Dentition is intact. NECK: Shows anterior throat supple without palpable lymphadenopathy noted. Swallow reflex symmetrical. CHEST: Shows normal on inspection. Breath sounds are clear bilaterally, distant but no rales or rhonchi. HEART: Shows S1, S2 clear. No murmurs auscultated. ABDOMEN: Soft, nontender, nondistended, obese. No palpable organomegaly is noted. BACK: Shows spine grossly in the midline. Normal-appearing cervical lordotic curvature. Cervical paraspinous muscles show symmetrical inspection, on palpa tion some moderate tenderness diffusely throughout the upper middle lower decrease the paraspinous muscles bilaterally but without trigger points and without radiation. Patient has good rotation of motion of the cervical spine both laterally as well as full extension full forward flexion. There is slightly increased thoracic kyphosis, some minor flattening of the lumbar lordotic curvature. EXTREMITIES: Upper extremities show deep tendon reflexes 2+ in the biceps and tricep tendons. Motor exam is 5 on a scale of 5 with right rib strength, biceps and triceps flexion and 4/5 on the left. Peripheral pulses are 2+ radial. No peripheral edema is noted bilaterally. Upper extremities are warm and dry to touch, equal in color and appearance. SKIN: Shows warm and dry, good turgor. No edema. No sores, rashes or bruising throughout. Procedure: Procedure: Options were discussed with the patient. Patient's old chart was used his current medication regimen updated current review of systems updated today as well. We will proceed with a cervical epidural steroid injection today with fluoroscopic guidance risks were discussed including but not limited to: Bleeding, infection, possibility of epidural hematoma and subsequent neurologica l compromise, dural puncture, headaches, spinal cord and/or nerve damage, side effects of steroid medication, and poor results regarding pain control. Patient understands and wished to proceed. Patient will return to clinic in approximately 2 weeks for follow-up, was counseled as return appointment, activity level, and side effect to be aware of. Medication Injected: Med Injected: Procedure cervical epidural steroid injection at the C6-7 level, using local anesthetic under sterile prep and drape using C-arm fluoroscopic guidance under local anesthesia medications injected ;120 mg Depo-Medrol +5 mL normal saline and 2 mL contrast; condition at discharge is stable patient tolerated procedure well. and had no complications Condition at Discharge: Condition at Discharge: Condition at discharge stable, patient already procedure well and had no complications. SARAH ARGUETA MD Apr 12, 2021 14:19
--- NOTE | 2021-04-12 14:20 | PDOC4 ---
Procedure Note: ICD 10 Code: ICD 10 Code: M54.12 M4 8.02 M50.30 Procedure Note: Patient was consented for cervical epidural steroid injection with fluoroscopic guidance. Risks were discussed including but not limited to: Bleeding, infection, possibility of epidural hematoma and subsequent neurological compromise, dural puncture, headaches, spinal cord and/or nerve damage, side effects of steroid medication, and poor results regarding pain control. Patient understands and wished to proceed. Procedure cervical epidural steroid injection at the C6-7 level, using local anesthetic under sterile prep and drape using C-arm fluoroscopic guidance under local anesthesia medications injected ;120 mg Depo-Medrol +5 mL normal saline and 2 mL contrast; condition at discharge is stable patient tolerated procedure well. and had no complications SARAH ARGUETA MD Apr 12, 2021 14:20
== END | disposition home or self-care (01) ==
LOC: PNCL 13:41
PROVIDERS: ATTEND Anesthesiology
DX: M50.10 Cervical disc disorder with radiculopathy, unspecified cervical region (principal); M48.02 Spinal stenosis, cervical region; I10 Essential (primary) hypertension; E66.9 Obesity, unspecified; J44.9 Chronic obstructive pulmonary disease, unspecified; K21.9 Gastro-esophageal reflux disease without esophagitis; M19.90 Unspecified osteoarthritis, unspecified site; E11.9 Type 2 diabetes mellitus without complications; Z79.899 Other long term (current) drug therapy; Z87.891 Personal history of nicotine dependence; Z98.890 Other specified postprocedural states
CPT/HCPCS: 62321; J1040; Q9965

== ENCOUNTER → 2021-11-30 | Outpatient (CLI) | payer OTHER ==
[~2021-11-30] MED LIST changes: +CYCL10TA19 PO; -CYCL10TA2 PO; -IOHEXOL 180 MG/ML 10 ML VIAL. ONE; -methylPREDNISolone ACETATE 80 MG/ML VIAL. ONE
--- NOTE | 2021-11-30 16:53 | KCIC ---
EXAM: Cervical spine MRI without contrast. HISTORY: Stenosis. TECHNIQUE: Multiplanar, multisequence magnetic resonance imaging of the cervical spine was performed without contrast. COMPARISON: MRI dated 12/17/2019. FINDINGS: There is minimal anterolisthesis of C7 on T1. There is degenerative endplate remodeling radha audra at the lower cervical levels. There is no osseous lesion. There is no fracture. At C2-C3, there is no stenosis. At C3-C4, there is endplate remodeling. There is mild bilateral facet arthropathy. There is minimal r ight foraminal stenosis. At C4-C5, endplate remodeling. There is mild bilateral facet arthropathy. There is no stenosis. At C5-C6, there is a disc bulge and endplate remodeling. There is mild central canal stenosis measuri ng 8.9 mm in anterior posterior dimension At C6-C7, there is a left lateral recess to foraminal disc protrusion and minimal superior extrusion. There is mild left facet arthropathy. There is mild to moderate left foraminal stenosis. There is ef facement of the left lateral recess and deviation of the left ventral nerve ramus. There is mild cent ral canal stenosis measuring 8.2 mm in anterior posterior dimension. IMPRESSION: 1. C6-C7: Left lateral recess to foraminal disc protrusion and minimal superior extrusion, stable to minimally decreased compared to the prior exam. Stable [id number] left foraminal stenosis and e ffacement of the left lateral recess and mild central canal stenosis. 2. Degenerative change involving the remainder of the cervical spine, not significantly changed blake red to the prior exam. Electronically signed by: Lyudmila Vigil MD (11/30/2021 4:50 PM) [id number]
== END ==
LOC: KCIC MRI 15:00
PROVIDERS: ATTEND Physician Assistant Medical
DX: M47.812 Spondylosis without myelopathy or radiculopathy, cervical region (principal); M48.02 Spinal stenosis, cervical region; M50.323 Other cervical disc degeneration at C6-C7 level; M43.13 Spondylolisthesis, cervicothoracic region; M48.8X2 Other specified spondylopathies, cervical region
CPT/HCPCS: 72141